=== PATIENT | male | born 1970 | race Caucasian/White ===

== ENCOUNTER 2017-03-10 17:06 | Emergency (ER) | payer BC ==
[2017-03-10] MEDS ORDERED: Ondansetron 4 MG/2 ML SDV IVPUSH ONE (17:37)
[2017-03-10] MEDS ORDERED: Sodium Chloride 0.9% 1,000 ML IV ONE (17:37)
--- NOTE | 2017-03-10 17:43 | EDM.PDOC ---
ED HPI GENERAL MEDICAL PROBLEM - General Chief Complaint: Upper Extremity Injury/Pain Stated Complaint: POSSIBLE BROKEN COLLAR BONE/FALL Time Seen by Provider: 03/10/17 17:37 Source of Information: Reports: Patient History Limitations: Reports: No Limitations - History of Present Illness INITIAL COMMENTS - FREE TEXT/NARRATIVE: HISTORY AND PHYSICAL: History of present illness: Patient is a 46-year-old male who presents to the emergency room with complaints of left clavicle and shoulder pain and abrasion to his forehead after falling approximately 3 feet from a truck. His happened about 45 minutes prior to arrival. Review of systems: As per history of present illness and below otherwise all systems reviewed and negative. Past medical history: As per history of present illness and as reviewed below otherwise noncontributory. Surgical history: As per history of present illness and as reviewed below otherwise noncontributory. Social history: No reported history of drug or alcohol abuse. Family history: As per history of present illness and as reviewed below otherwise noncontributory. Physical exam: Gen.: Well-developed and well-nourished 46-year-old male. Alert and oriented. In no acute distress and appears nontoxic. HEENT: Abrasion noted to left mid forehead above the eyebrow and left posterior scalp. No current bleeding noted. Normocephalic, pupils equal and reactive bilaterally- 4 mm, negative for conjunctival pallor or scleral icterus, mucous membranes moist, throat clear, neck supple, no lymphadenopathy nontender, trachea midline. Lungs: Clear to auscultation, breath sounds equal bilaterally, chest nontender. Heart: S1S2, regular rate and rhythm with no overt murmurs Abdomen: Soft, nondistended, nontender. Negative for masses or hepatosplenomegaly. Negative for costovertebral tenderness. Pelvis: Stable nontender. Genitourinary: Deferred. Rectal: Deferred. Cervical spine/back: No pin point vertebral tenderness, crepitus, obvious deformities or step-offs. Extremities: Obvious deformity to the left clavicle with soft tissue swelling mid clavicle, pain with palpation. Pain with palpation and range of motion of the left shoulder. Patient has his arm guarded towards his chest. Denies any discomfort when palpating the bicep, tricep, elbow, forearm, wrist or hand- with full range of motion to these. Strong radial pulse with capillary refill less than 3 seconds to the affected extremity. Neurovascular unremarkable. Neuro: Awake, alert, oriented. Cranial nerves II through XII unremarkable. Cerebellum unremarkable. Motor and sensory unremarkable throughout. Exam nonfocal. At CT is negative. The x-ray of the left clavicle shows a coming needed displaced fracture mid shaft. There is soft tissue swelling noted upon my physical examination but no tenting. We currently do not have or so available at our facility. I did contact Dr. Pleitez at [facility] in [place]. I reviewed this case and shared the x-ray findings with him. He will see the patient tomorrow. He instructed me to inform the patient that his clinic opens at 8:30 in the morning and he can show up at any time. He would like the patient to be nothing by mouth in case they do decide to do surgery at that time. [place] 5/25 has been prescribed along with Zofran. A sling has been applied to the patient with education. The patient and the have been warmed of all this information. They voice understanding and are agreeable to plan of care. Any further questions at this time. Diagnostics: CBC, CMP, head CT, x-ray of the left clavicle and shoulder Therapeutics: IV fluid, Zofran Impression: Head injury Fracture of the left clavicle Shoulder injury Plan: 1. Your head CT was normal. Please review the head injury precautions. 2. There is no or thorough coverage in [place] currently. I did speak with Dr. Pleitez, orthopedic in [place], who is seated tomorrow at 8:30 in the morning for evaluation of your fracture injury. Please have nothing by mouth after midnight. He may take sips of water. 3. Sling has been provided for you for comfort. Ice to the area help alleviate the pain. [place] has been prescribed, this is a narcotic, so do not take it while needing to be functioning or while driving. He may take 1 tab every 4-6 hours as needed. Zofran has been given to you to help alleviate nausea. 4. Return to the ED as needed and as discussed. Definitive disposition and diagnosis as appropriate pending reevaluation and review of above. Onset: Today Duration: Minutes: Location: Reports: Head, Upper Extremity, Left Head Pain Score (Numeric/FACES): 10 - Related Data Allergies Allergy/AdvReac Type Severity Reaction Status Date / Time No Known Allergies Allergy Verified 03/10/17 17:31 Home Meds: Home Meds . [Unable to Verify Home Med List] 09/07/15 [History] Past Medical History Other Musculoskeletal History: Hx: fracturing wrists, Current fracture RIght Index finger Psychiatric History: Reports: Anxiety, Bipolar, PTSD - Infectious Disease History Infectious Disease History: Reports: Chicken Pox - Past Surgical History Other Musculoskeletal Surgeries/Procedures:: left knee surg Social & Family History - Family History Family Medical History: Noncontributory - Tobacco Use Smoking Status *Q: Never Smoker Second Hand Smoke Exposure: No - Recreational Drug Use Recreational Drug Use: No Drug Use in Last 12 Months: No Review of Systems - Review of Systems Review Of Systems: ROS reveals no pertinent complaints other than HPI. ED EXAM, GENERAL - Physical Exam Exam: See Below (See Dictation) Course - Vital Signs Last Recorded V/S: Last Vital Signs Temp 98.1 F 03/10/17 17:31 Pulse 72 03/10/17 18:29 Resp 18 03/10/17 18:29 BP 122/80 03/10/17 18:29 Pulse Ox 97 03/10/17 18:29 - Orders/Labs/Meds Orders: Active Orders 24 hr Category Date Time Status Clavicle Lt [CR] Stat Exams 03/10/17 17:37 Taken Head wo Cont [CT] Stat Exams 03/10/17 17:37 Taken Shoulder Comp Lt [CR] Stat Exams 03/10/17 17:37 Taken Labs: Laboratory Tests 03/10/17 03/10/17 03/10/17 Range/Units 17:50 17:50 17:50 WBC 10.53 (4.0-11.0) K/uL RBC 4.80 (4.50-5.90) M/uL Hgb 14.2 (13.0-17.0) g/dL Hct 42.1 (38.0-50.0) % MCV 87.7 (80.0-98.0) fL MCH 29.6 (27.0-32.0) pg MCHC 33.7 (31.0-37.0) g/dL RDW Std Deviation 42.9 (28.0-62.0) fl RDW Coeff of Telly 13 (11.0-15.0) % Plt Count 256 (150-400) K/uL MPV 12.00 (7.40-12.00) fL Neut % (Auto) 75.7 (48.0-80.0) % Lymph % (Auto) 17.6 (16.0-40.0) % Hamblen % (Auto) 6.0 (0.0-15.0) % Eos % (Auto) 0.3 (0.0-7.0) % Baso % (Auto) 0.4 (0.0-1.5) % Neut # (Auto) 8.0 H (1.4-5.7) K/uL Lymph # (Auto) 1.9 (0.6-2.4) K/uL Hamblen # (Auto) 0.6 (0.0-0.8) K/uL Eos # (Auto) 0.0 (0.0-0.7) K/uL Baso # (Auto) 0.0 (0.0-0.1) K/uL Nucleated RBC % 0.0 /100WBC Nucleated RBCs # 0 K/uL INR 1.05 (0.86-1.11) Sodium 139 (136-146) mmol/L Potassium 3.6 (3.5-5.1) mmol/L Chloride 105 (98-110) mmol/L Carbon Dioxide 22 (21-31) mmol/L BUN 10 (6.0-23.0) mg/dL Creatinine 1.0 (0.6-1.5) mg/dL Est Cr Clr Drug Dosing TNP Estimated GFR (MDRD) > 60.0 ml/min Glucose 126 H (60-110) mg/dL Calcium 9.6 (8.8-10.8) mg/dL Total Bilirubin 0.6 (0.1-1.5) mg/dL AST 40 (5-40) IU/L ALT 48 (8-54) IU/L Alkaline Phosphatase 72 (40-150) Total Protein 8.2 H (6.0-8.0) g/dL Albumin 4.5 (3.5-5.0) g/dL Globulin 3.7 H (2.0-3.5) g/dL Albumin/Globulin Ratio 1.2 L (1.3-2.8) Meds: Medications Discontinued Medications Generic Name Dose Route Start Last Admin Trade Name Freq PRN Reason Stop Dose Admin Sodium Chloride 1,000 mls @ 999 mls/hr 03/10/17 17:37 03/10/17 17:49 Normal Saline IV 03/10/17 18:37 999 mls/hr STAT ONE Administration Morphine Sulfate 4 mg 03/10/17 18:45 03/10/17 18:56 Morphine IVPUSH 03/10/17 18:46 4 mg ONETIME ONE Administration Ondansetron HCl 4 mg 03/10/17 17:37 03/10/17 17:48 Zofran IVPUSH 03/10/17 17:38 4 mg ONETIME ONE Administration Departure - Departure Time of Disposition: 19:16 Disposition: Home, Self-Care 01 Clinical Impression: Clavicle fracture Qualifiers: Encounter type: initial encounter Clavicle location: shaft Fracture type: closed Fracture alignment: displaced Laterality: left Qualified Code(s): S42.022A - Displaced fracture of shaft of left clavicle, initial encounter for closed fracture - Discharge Information Instructions: Clavicle Fracture, [id number] Referrals: PCP,None [Primary Care Provider] - Forms: ED Department Discharge Additional Instructions: My general discharge The following information is given to patients seen in the emergency department who are being discharged to home. This information is to outline your options for follow-up care. We provide all patients seen in our emergency department with a follow-up referral. The need for follow-up, as well as the timing and circumstances, are variable depending upon the specifics of your emergency department visit. If you don't have a primary care physician on staff, we will provide you with a referral. We always advise you to contact your personal physician following an emergency department visit to inform them of the circumstance of the visit and for follow-up with them and/or the need for any referrals to a consulting specialist. The emergency department will also refer you to a specialist when appropriate. This referral assures that you have the opportunity for follow-up care with a specialist. All of these measure are taken in an effort to provide you with optimal care, which includes your follow-up. Under all circumstances we always encourage you to contact your private physician who remains a resource for coordinating your care. When calling for follow-up care, please make the office aware that this follow-up is from your recent emergency room visit. If for any reason you are refused follow-up, please contact the [facility] Emergency Department at and asked to speak to the emergency department charge nurse. [facility] - [facility] Professional Building [address] [place] [address], [address] [place] [address] was normal. Please review the head injury precautions. 2. There is no or thorough coverage in [place] currently. I did speak with Dr. Pleitez, orthopedic in [place], who is seated tomorrow at 8:30 in the morning for evaluation of your fracture injury. Please have nothing by mouth after midnight. He may take sips of water. [facility]: [facility], [place] (Across from the main building) [phone] Dr[address] Pleitez, orthopedic physician 3. Sling has been provided for you for comfort. Ice to the area help alleviate the pain. [place] has been prescribed, this is a narcotic, so do not take it while needing to be functioning or while driving. He may take 1 tab every 4-6 hours as needed. Zofran has been given to you to help alleviate nausea. 4. Return to the ED as needed and as discussed. - My Orders Last 24 Hours: My Active Orders 03/10/17 17:37 Clavicle Lt [CR] Stat Head wo Cont [CT] Stat Shoulder Comp Lt [CR] Stat - Assessment/Plan Last 24 Hours: My Active Orders 03/10/17 17:37 Clavicle Lt [CR] Stat Head wo Cont [CT] Stat Shoulder Comp Lt [CR] Stat
[2017-03-10 18:19] LABS: CHLORIDE,CL 105 mmol/L (98-110); SODIUM,NA 139 mmol/L (136-146)
[2017-03-10] MEDS ORDERED: Morphine 4 MG/ML Syringe IVPUSH ONE (18:45)
[2017-03-10 19:32] VITALS: BP 119/69
--- NOTE | 2017-03-11 08:48 | CT ---
EXAM DATE: 03/10/17 PATIENT'S AGE: 46 Patient: BRAYAN DIOP Facility: [place], [place] Site . Site : 1970 Study: CT Head WO CONT [id number]/13/2017 6:07:29 PM Ordering Physician: Doctor Barger Final Report: INDICATION: PAIN. FALL AND HIT HEAD TONIGHT. CT SCAN HEAD WITHOUT CONTRAST TECHNIQUE: Direct axial non-contrast images of the head from foramen magnum to vertex are provided. FINDINGS: Axial images of the brain demonstrate a normal appearance of the ventricles, sulci and basal cistern. There is no evidence of intracranial hemorrhage, infarct, mass or mass effect. Donovan-white differentiation is normal throughout. Visualized mastoid air cells and middle ear cavities are clear. The visualized paranasal sinuses are clear. The orbits are symmetric. Calvarium intact. CONCLUSION: Unremarkable unenhanced head CT. Dictated by: Maik Walker MD @ 03/10/2017 18:20:13 (Electronic Signature) Report Signed by Proxy. JUAN LUIS
--- NOTE | 2017-03-11 08:51 | CR ---
EXAM DATE: 03/10/17 PATIENT'S AGE: 46 Patient: BRAYAN DIOP Facility: [place], [place] Site . Site : 1970 Study: XRay Shoulder Left clavicle [id number]/13/2017 6:26:29 PM Ordering Physician: Doctor Barger Final Report: HISTORY: Fall. FINDINGS: Two views of the left fracture left clavicle demonstrate a comminuted fracture of the mid diaphysis. There is 1.5 cm of inferior displacement of the major distal fracture fragment. There is a least 1 cm of bayoneting. There is normal alignment at the AC joint. IMPRESSION: Comminuted displaced fracture of the mid left clavicle. Dictated by Vanessa Fajardo MD @ 03/10/2017 6:35:11 PM Dictated by: Vanessa Fajardo MD @ 03/10/2017 18:37:12 (Electronic Signature) Report Signed by Proxy. JUAN LUIS
--- NOTE | 2017-03-11 08:52 | CR ---
EXAM DATE: 03/10/17 PATIENT'S AGE: 46 Patient: BRAYAN DIOP Facility: [place], [place] Site . Site : 1970 Study: XRay Shoulder Left [id number]/13/2017 6:26:46 PM Ordering Physician: Doctor Barger Final Report: HISTORY: Fall. TECHNIQUE: Two views of the left shoulder demonstrate a comminuted fracture of the mid left clavicular fracture. There is inferior displacement of major distal fracture fragment. There is normal alignment of the AC joint and glenohumeral joint. Proximal humerus is intact. IMPRESSION: Comminuted mid left clavicular fracture with inferior displacement of major distal fracture fragment. Dictated by Vanessa Fajardo MD @ 03/10/2017 6:36:59 PM Dictated by: Vanessa Fajardo MD @ 03/10/2017 18:37:06 (Electronic Signature) Report Signed by Proxy. JUAN LUIS
== END 2017-03-10 19:28 | disposition home or self-care (01) ==
LOC: MW.ED 17:06
DX: S42.022A Displaced fracture of shaft of left clavicle, initial encounter for closed fracture (principal); S09.90XA Unspecified injury of head, initial encounter; S00.81XA Abrasion of other part of head, initial encounter; S00.01XA Abrasion of scalp, initial encounter; V89.9XXA Person injured in unspecified vehicle accident, initial encounter
CPT/HCPCS: 36415; 70450; 73000; 73030; 80053; 85025; 85610; 96361; 96374; 96375; 99284; A4566; J2270; J2405; J7040